=== PATIENT | male | born 1950 | race Caucasian/White ===

== ENCOUNTER 2018-03-24 19:12 | Inpatient (IN) | payer MEDICARE, OTHER ==
[2018-03-24] MEDS ORDERED: DILTIAZEM 25 MG INJ (19:37)
[2018-03-24 19:52] LABS: ADD MAN DIFF? NO
[2018-03-24 19:54] LABS: BASOPHIL # 0.1 10^3/ul (0.0-0.1); BASOPHILS % 0.5 % (0.0-2.0); EOSINOPHILS # 0.2 10^3/ul (0.0-0.5); EOSINOPHILS % 1.5 % (0.0-7.0); HEMATOCRIT 45.5 % (42.0-52.0); HEMOGLOBIN 14.3 g/dl (14.0-18.0); LYMPHOCYTES # 1.8 10^3/ul (0.8-2.9); MEAN CORPUSCULAR HEMOGLOBIN 26.9 pg (29.0-33.0); MEAN CORPUSCULAR HGB CONC 31.4 g/dl (32.0-37.0); MEAN CORPUSCULAR VOLUME 85.7 fl (82.0-101.0); MEAN PLATELET VOLUME 10.8 fl (7.4-10.4); MONOCYTE # 0.7 10^3/ul (0.3-0.9); MONOCYTES % 6.2 % (0.0-11.0); NEUTROPHIL # 9.1 10^3/ul (1.6-7.5); NEUTROPHILS % 76.1 % (39.0-77.0); PLATELET COUNT 282 10^3/UL (140-415); RED BLOOD COUNT 5.31 10^6/ul (4.70-6.10); RED CELL DISTRIBUTION WIDTH 14.7 % (11.5-14.5)
[2018-03-24] MEDS: ASPIRIN 81 MG TAB PO (20:01)
[2018-03-24] MEDS: DILTIAZEM 25 MG INJ IV (20:02)
[2018-03-24] MEDS: DILTIAZEM-D5W 125MG/125ML DRIP 125 ML IV (20:02)
[2018-03-24 20:12] LABS: ALANINE AMINOTRANSFERASE 14 IU/L (13-69); ALBUMIN 3.9 g/dl (3.3-4.9); ALBUMIN/GLOBULIN RATIO 1.14; ALKALINE PHOSPHATASE 81 IU/L (42-121); ANION GAP 9 (5-13); ASPARTATE AMINO TRANSFERASE 22 IU/L (15-46); BILIRUBIN,INDIRECT 0.1 mg/dl (0-1.1); BILIRUBIN,TOTAL 0.1 mg/dl (0.2-1.3); BLOOD UREA NITROGEN 22 mg/dl (7-20); CARBON DIOXIDE 29 mmol/L (21-31); CHLORIDE 100 mmol/L (97-110); CREATININE 0.67 mg/dl (0.61-1.24); Estimated GFR > 60 mL/min (>60); GLUCOSE 294 mg/dl (70-220); INR 0.89; POTASSIUM 4.5 mmol/L (3.5-5.1); PROTIME 12.1 Sec (11.9-14.9); PT RATIO 0.9; SODIUM 138 mmol/L (135-144); TOTAL PROTEIN 7.3 g/dl (6.1-8.1)
[2018-03-24 20:13] LABS: PARTIAL THROMBOPLASTIN TIME 28.6 Sec (23.0-35.0)
[2018-03-24 20:24] LABS: B-TYPE NATRIURETIC PEPTIDE 652 PG/ML (0-125)
[2018-03-24] MEDS: ONDANSETRON 4 MG INJ IV (20:54)
[2018-03-24] MEDS: morphine 4 MG/ML VIAL IV (20:54)
[2018-03-24] MEDS ORDERED: ACETAMINOPHEN 325 MG TAB PO (22:00)
[2018-03-24] MEDS ORDERED: ONDANSETRON 4 MG INJ IV (22:00)
[2018-03-24] MEDS ORDERED: BISACODYL (EC) 5 MG TAB PO (23:00)
[2018-03-24] MEDS ORDERED: IPRATROPIUM (NEB) 0.5 MG/2.5 ML AMP NEB (23:00)
[2018-03-24] MEDS ORDERED: DOCUSATE SODIUM 100 MG CAP PO (23:00)
[2018-03-24] MEDS ORDERED: ACETAMINOPHEN 650MG/20.3ML CUP PO (23:00)
[2018-03-24] MEDS: METOPROLOL 5 MG INJ IV (23:12)
[2018-03-24] MEDS: DIGOXIN 500 MCG INJ IV (23:23)
[2018-03-24] MEDS ORDERED: DEXTROSE 50% 50 ML SYRINGE IV ×2 (23:45)
[2018-03-24] MEDS ORDERED: GLUCOSE GEL 15 GRAM TUBE PO ×2 (23:45)
[2018-03-24] MEDS ORDERED: GLUCOSE GEL 15 GRAM TUBE BUCCAL (23:45)
[2018-03-24] MEDS ORDERED: GLUCAGON 1 MG INJ IM (23:45)
[2018-03-25] MEDS: ENOXAPARIN 100 MG/ML SYG SC (00:14)
[2018-03-25] MEDS: ENOXAPARIN 40 MG/0.4 ML SYG SC ×2 (00:15→10:03)
[2018-03-25] MEDS: LORAZEPAM 2 MG INJ IV (00:15)
[2018-03-25 01:03] LABS: CREATINE KINASE 54 IU/L (23-200)
[2018-03-25 01:15] LABS: CK INDEX 5.5
[2018-03-25 01:17] LABS: CK-MB 2.98 ng/ml (0.0-2.4)
[2018-03-25 01:19] LABS: TROPONIN-I 0.299 ng/ml (0.000-0.120)
[2018-03-25] MEDS: morphine 2 MG INJ IV ×4 (03:04→17:16)
[2018-03-25 05:21] LABS: ADD MAN DIFF? NO
[2018-03-25 05:25] LABS: WHITE BLOOD COUNT 9.2 10^3/ul (4.8-10.8)
[2018-03-25 05:25] LABS: BASOPHILS % 0.4 % (0.0-2.0); EOSINOPHILS # 0.2 10^3/ul (0.0-0.5); HEMATOCRIT 43.6 % (42.0-52.0); HEMOGLOBIN 13.7 g/dl (14.0-18.0); LYMPHOCYTES # 2.2 10^3/ul (0.8-2.9); LYMPHOCYTES % 24.2 % (15.0-51.0); MEAN CORPUSCULAR HEMOGLOBIN 27.1 pg (29.0-33.0); MEAN CORPUSCULAR HGB CONC 31.4 g/dl (32.0-37.0); MEAN CORPUSCULAR VOLUME 86.2 fl (82.0-101.0); MEAN PLATELET VOLUME 10.9 fl (7.4-10.4); MONOCYTE # 0.7 10^3/ul (0.3-0.9); MONOCYTES % 7.4 % (0.0-11.0); NEUTROPHIL # 6.1 10^3/ul (1.6-7.5); NEUTROPHILS % 65.6 % (39.0-77.0); PLATELET COUNT 241 10^3/UL (140-415); RED BLOOD COUNT 5.06 10^6/ul (4.70-6.10); RED CELL DISTRIBUTION WIDTH 14.8 % (11.5-14.5)
[2018-03-25 05:42] LABS: ALANINE AMINOTRANSFERASE 20 IU/L (13-69); ALBUMIN 3.4 g/dl (3.3-4.9); ALKALINE PHOSPHATASE 63 IU/L (42-121); ANION GAP 7 (5-13); ASPARTATE AMINO TRANSFERASE 23 IU/L (15-46); BILIRUBIN,INDIRECT 0.2 mg/dl (0-1.1); BILIRUBIN,TOTAL 0.2 mg/dl (0.2-1.3); BLOOD UREA NITROGEN 25 mg/dl (7-20); CALCIUM 8.7 mg/dl (8.4-10.2); CARBON DIOXIDE 38 mmol/L (21-31); CHLORIDE 97 mmol/L (97-110); CREATININE 0.74 mg/dl (0.61-1.24); Estimated GFR > 60 mL/min (>60); GLUCOSE 209 mg/dl (70-220); POTASSIUM 4.4 mmol/L (3.5-5.1); SODIUM 142 mmol/L (135-144); TOTAL PROTEIN 6.8 g/dl (6.1-8.1)
[2018-03-25 05:47] LABS: CREATINE KINASE 107 IU/L (23-200)
[2018-03-25] MEDS: PANTOPRAZOLE (EC) 40 MG TAB PO (05:48)
[2018-03-25] MEDS: FUROSEMIDE 40 MG INJ IV (05:49)
[2018-03-25] MEDS: METOPROLOL 5 MG INJ IV ×2 (05:49)
[2018-03-25 06:13] LABS: DIGOXIN < 0.4 ng/ml (1.0-2.0)
[2018-03-25 07:17] LABS: CK INDEX 5.2
[2018-03-25 07:18] LABS: CK-MB 5.57 ng/ml (0.0-2.4)
[2018-03-25] MEDS ORDERED: ALBUTEROL/IPRATROPIUM (NEB) 3 ML AMP HHN (09:00)
[2018-03-25] MEDS ORDERED: LOSARTAN 50 MG TAB PO (09:00)
[2018-03-25] MEDS ORDERED: PANTOPRAZOLE (EC) 40 MG TAB PO (09:00)
[2018-03-25] MEDS ORDERED: ASPIRIN 81 MG TAB PO (09:00)
[2018-03-25] MEDS: HYDROCHLOROTHIAZIDE 25 MG TAB PO ×2 (09:00→09:06)
[2018-03-25] MEDS ORDERED: METOPROLOL 5 MG INJ IV (09:00)
[2018-03-25] MEDS: METOPROLOL (XL) 50 MG TAB PO (09:06)
[2018-03-25] MEDS: LOSARTAN 50 MG TAB PO (09:06)
[2018-03-25] MEDS: APIXABAN 5 MG TABLET PO (09:07)
[2018-03-25] MEDS: INSULIN ASPART [NOVOLOG] 3 ML PEN SC ×5 (09:10→21:55)
[2018-03-25 09:46] LABS: CHOL/HDL RATIO 3.5 RATIO; HDL CHOLESTEROL 52 mg/dl (30-78); LDL CHOLESTEROL,CALCULATED 103 mg/dl; TRIGLYCERIDES 147 mg/dl (0-149)
[2018-03-25 09:46] LABS: CHOLESTEROL 184 mg/dl (100-200)
[2018-03-25] MEDS: FLUTICASONE/VILANTEROL 200-25 INH DEVICE INH (10:03)
[2018-03-25 10:04] LABS: HEMOGLOBIN A1C 9.2 % (0-5.9)
[2018-03-25] MEDS: NITROGLYCERIN (SL) 0.4 MG TAB SL (11:12)
[2018-03-25 11:56] LABS: FREE T4 (FREE THYROXINE) 1.34 ng/dl (0.78-2.44)
[2018-03-25 12:14] LABS: CREATINE KINASE 162 IU/L (23-200)
[2018-03-25 12:34] LABS: CK-MB 4.82 ng/ml (0.0-2.4)
[2018-03-25 18:32] LABS: CREATINE KINASE 156 IU/L (23-200)
[2018-03-25 18:46] LABS: CK INDEX 2.5
[2018-03-25 18:50] LABS: CK-MB 3.87 ng/ml (0.0-2.4); TROPONIN-I 0.899 ng/ml (0.000-0.120)
[2018-03-25] MEDS: morphine 4 MG/ML VIAL IV (21:41)
[2018-03-25] MEDS: ATORVASTATIN 20 MG TAB PO (21:48)
[2018-03-25] MEDS: MONTELUKAST 10 MG TAB PO (21:48)
[2018-03-25] MEDS: INSULIN GLARGINE [LANTus] (100 UNITS/ML) SYG SC (21:55)
[2018-03-26] MEDS: LABETALOL HCL 20MG INJ IV (01:01)
[2018-03-26 01:24] LABS: CREATINE KINASE 125 IU/L (23-200)
[2018-03-26 01:37] LABS: CK INDEX 1.9
[2018-03-26 01:39] LABS: CK-MB 2.43 ng/ml (0.0-2.4); TROPONIN-I 0.559 ng/ml (0.000-0.120)
[2018-03-26] MEDS: morphine 4 MG/ML VIAL IV ×3 (01:46→10:33)
[2018-03-26] MEDS: INSULIN ASPART [NOVOLOG] 3 ML PEN SC ×8 (02:15→20:59)
[2018-03-26] MEDS: hydrALAzine 20 MG INJ IV ×2 (04:50→23:57)
[2018-03-26 05:41] LABS: ADD MAN DIFF? NO
[2018-03-26 05:44] LABS: BASOPHILS % 0.4 % (0.0-2.0); EOSINOPHILS # 0.2 10^3/ul (0.0-0.5); HEMATOCRIT 46.3 % (42.0-52.0); HEMOGLOBIN 14.7 g/dl (14.0-18.0); LYMPHOCYTES # 1.9 10^3/ul (0.8-2.9); LYMPHOCYTES % 19.2 % (15.0-51.0); MEAN CORPUSCULAR HEMOGLOBIN 27.2 pg (29.0-33.0); MEAN CORPUSCULAR HGB CONC 31.7 g/dl (32.0-37.0); MEAN CORPUSCULAR VOLUME 85.7 fl (82.0-101.0); MEAN PLATELET VOLUME 10.9 fl (7.4-10.4); MONOCYTE # 0.7 10^3/ul (0.3-0.9); MONOCYTES % 6.4 % (0.0-11.0); NEUTROPHIL # 7.2 10^3/ul (1.6-7.5); NEUTROPHILS % 71.5 % (39.0-77.0); PLATELET COUNT 245 10^3/UL (140-415); RED CELL DISTRIBUTION WIDTH 14.7 % (11.5-14.5)
[2018-03-26 05:44] LABS: WHITE BLOOD COUNT 10.1 10^3/ul (4.8-10.8)
[2018-03-26] MEDS: PANTOPRAZOLE (EC) 40 MG TAB PO (05:51)
[2018-03-26 06:07] LABS: PHOSPHORUS 4.6 mg/dl (2.5-4.9)
[2018-03-26 06:07] LABS: MAGNESIUM 1.8 mg/dl (1.7-2.5)
[2018-03-26 06:09] LABS: ALANINE AMINOTRANSFERASE 19 IU/L (13-69); ALBUMIN 3.8 g/dl (3.3-4.9); ALBUMIN/GLOBULIN RATIO 1.05; ALKALINE PHOSPHATASE 70 IU/L (42-121); ANION GAP 10 (5-13); ASPARTATE AMINO TRANSFERASE 21 IU/L (15-46); BILIRUBIN,INDIRECT 0.3 mg/dl (0-1.1); BILIRUBIN,TOTAL 0.3 mg/dl (0.2-1.3); BLOOD UREA NITROGEN 25 mg/dl (7-20); CALCIUM 9.2 mg/dl (8.4-10.2); CARBON DIOXIDE 38 mmol/L (21-31); CHLORIDE 94 mmol/L (97-110); CREATININE 0.71 mg/dl (0.61-1.24); Estimated GFR > 60 mL/min (>60); GLUCOSE 234 mg/dl (70-220); POTASSIUM 4.3 mmol/L (3.5-5.1); SODIUM 142 mmol/L (135-144); TOTAL PROTEIN 7.4 g/dl (6.1-8.1)
[2018-03-26 06:14] LABS: CREATINE KINASE 98 IU/L (23-200)
[2018-03-26 06:21] LABS: CK INDEX 1.7; CK-MB 1.68 ng/ml (0.0-2.4); TROPONIN-I 0.616 ng/ml (0.000-0.120)
[2018-03-26] MEDS: LOSARTAN 50 MG TAB PO (06:50)
[2018-03-26] MEDS: HYDROCHLOROTHIAZIDE 25 MG TAB PO (06:51)
[2018-03-26] MEDS: METOPROLOL (XL) 50 MG TAB PO ×2 (08:21→10:43)
[2018-03-26] MEDS: FLUTICASONE/VILANTEROL 200-25 INH DEVICE INH (08:22)
[2018-03-26] MEDS: ENOXAPARIN 40 MG/0.4 ML SYG SC (08:28)
[2018-03-26] MEDS ORDERED: HYDROCHLOROTHIAZIDE 25 MG TAB PO (09:30)
[2018-03-26] MEDS: traMADol 50 MG TAB PO (17:16)
[2018-03-26] MEDS: MONTELUKAST 10 MG TAB PO (20:55)
[2018-03-26] MEDS: ATORVASTATIN 20 MG TAB PO (20:55)
[2018-03-26] MEDS: INSULIN GLARGINE [LANTus] (100 UNITS/ML) SYG SC (21:00)
[2018-03-27 05:50] LABS: ADD MAN DIFF? NO
[2018-03-27 05:51] LABS: BASOPHILS % 0.3 % (0.0-2.0); EOSINOPHILS # 0.2 10^3/ul (0.0-0.5); EOSINOPHILS % 1.8 % (0.0-7.0); HEMATOCRIT 46.7 % (42.0-52.0); HEMOGLOBIN 14.6 g/dl (14.0-18.0); LYMPHOCYTES # 1.9 10^3/ul (0.8-2.9); LYMPHOCYTES % 19.9 % (15.0-51.0); MEAN CORPUSCULAR HEMOGLOBIN 26.8 pg (29.0-33.0); MEAN CORPUSCULAR HGB CONC 31.3 g/dl (32.0-37.0); MEAN CORPUSCULAR VOLUME 85.7 fl (82.0-101.0); MEAN PLATELET VOLUME 11.5 fl (7.4-10.4); MONOCYTE # 0.7 10^3/ul (0.3-0.9); MONOCYTES % 7.7 % (0.0-11.0); NEUTROPHIL # 6.6 10^3/ul (1.6-7.5); PLATELET COUNT 256 10^3/UL (140-415); RED BLOOD COUNT 5.45 10^6/ul (4.70-6.10); RED CELL DISTRIBUTION WIDTH 14.7 % (11.5-14.5)
[2018-03-27 05:51] LABS: WHITE BLOOD COUNT 9.5 10^3/ul (4.8-10.8)
[2018-03-27 06:41] LABS: MAGNESIUM 1.7 mg/dl (1.7-2.5)
[2018-03-27 06:41] LABS: PHOSPHORUS 4.7 mg/dl (2.5-4.9)
[2018-03-27 06:46] LABS: ALANINE AMINOTRANSFERASE 17 IU/L (13-69); ALBUMIN 3.6 g/dl (3.3-4.9); ALBUMIN/GLOBULIN RATIO 1.05; ALKALINE PHOSPHATASE 75 IU/L (42-121); ANION GAP 6 (5-13); ASPARTATE AMINO TRANSFERASE 18 IU/L (15-46); BILIRUBIN,INDIRECT 0.3 mg/dl (0-1.1); BILIRUBIN,TOTAL 0.3 mg/dl (0.2-1.3); BLOOD UREA NITROGEN 22 mg/dl (7-20); CALCIUM 9.1 mg/dl (8.4-10.2); CARBON DIOXIDE 34 mmol/L (21-31); CHLORIDE 98 mmol/L (97-110); CREATININE 0.65 mg/dl (0.61-1.24); Estimated GFR > 60 mL/min (>60); GLUCOSE 207 mg/dl (70-220); POTASSIUM 3.9 mmol/L (3.5-5.1); SODIUM 138 mmol/L (135-144)
[2018-03-27] MEDS: PANTOPRAZOLE (EC) 40 MG TAB PO (06:56)
[2018-03-27] MEDS: LOSARTAN 50 MG TAB PO (08:24)
[2018-03-27] MEDS: METOPROLOL (XL) 50 MG TAB PO (08:25)
[2018-03-27] MEDS: HYDROCHLOROTHIAZIDE 25 MG TAB PO (08:25)
[2018-03-27] MEDS: FLUTICASONE/VILANTEROL 200-25 INH DEVICE INH (08:26)
[2018-03-27] MEDS: INSULIN ASPART [NOVOLOG] 3 ML PEN SC ×4 (08:32→12:19)
[2018-03-27] MEDS: ENOXAPARIN 40 MG/0.4 ML SYG SC (08:33)
[2018-03-28] MEDS ORDERED: ASPIRIN (EC) 81 MG TAB PO (09:00)
== END 2018-03-27 14:30 | disposition home or self-care (01) | DRG 281 ==
LOC: ICU 21:58 → E/R 19:12 → 6WM 03-25 18:10
DX: I21.A1 Myocardial infarction type 2 (principal); Z68.43 Body mass index [BMI] 50.0-59.9, adult; I47.1 Supraventricular tachycardia; I48.91 Unspecified atrial fibrillation; E66.01 Morbid (severe) obesity due to excess calories; J44.9 Chronic obstructive pulmonary disease, unspecified; E78.5 Hyperlipidemia, unspecified; E11.9 Type 2 diabetes mellitus without complications; N40.0 Benign prostatic hyperplasia without lower urinary tract symptoms; Z87.891 Personal history of nicotine dependence; I25.10 Atherosclerotic heart disease of native coronary artery without angina pectoris
CPT/HCPCS: 71045; 74018; 80053; 80061; 80162; 82550; 82553; 82962; 83036; 83735; 83880; 84100; 84439; 84443; 84484; 85025; 85610; 85730; 87081; 93005; 93306; 96374; 96375; 97161; 99291-25